=== PATIENT | male | born 1945 | race Caucasian/White ===

== ENCOUNTER 2019-05-15 08:11 | Day surgery (SDC) | payer MEDICARE, OTHER ==
[~2019-05-15] VITALS: Ht 182.9 cm; Wt 91.5 kg
[~2019-05-15 08:11] MED LIST: ALLEGRA ALLERG180 MG PO; COENZYME Q10100 MG PO; Daily Multiple1 EACH PO; ELIQUIS5 MG PO; Oysco-500500 MG PO; SIMV10 PO
--- NOTE | 2019-05-15 09:07 | NUR ---
05/15/19 0907 Dayana Thacker 1 ATTEMP HAND RIGHT VALVE IN WAY 2 ATTEMP GOOD UPPER ARM
== END 2019-05-15 10:46 | disposition home or self-care (01) ==
LOC: ORSCSDS 08:11
PROVIDERS: Internal Medicine Gastroenterology
PROC: 0DBH8ZX Excision of Cecum, Via Natural or Artificial Opening Endoscopic, Diagnostic (ICD-10-PCS; principal; 2019-05-15 09:45)
DX: Z12.11 Encounter for screening for malignant neoplasm of colon (principal); Z86.010 Personal history of colon polyps; Z80.0 Family history of malignant neoplasm of digestive organs; D12.0 Benign neoplasm of cecum; K57.30 Diverticulosis of large intestine without perforation or abscess without bleeding; K64.8 Other hemorrhoids; I48.91 Unspecified atrial fibrillation; I10 Essential (primary) hypertension; E03.9 Hypothyroidism, unspecified; Z87.891 Personal history of nicotine dependence; Z79.01 Long term (current) use of anticoagulants; Z79.899 Other long term (current) drug therapy
CPT/HCPCS: 88305; J2704; J7120

== ENCOUNTER 2021-08-06 09:44 | Inpatient (IN) | payer MEDICARE, OTHER ==
[~2021-08-06] VITALS: Ht 182.9 cm; Wt 91.7 kg
[~2021-08-06 09:44] MED LIST changes: +CALCIUM CARBONATE PO; -Oysco-500500 MG PO
[2021-08-06 10:57] LABS: BASOPHILS ABSOLUTE AUTO 0.02 K/mm3 (0.00-0.23); BASOPHILS PERCENT AUTO 0 % (0-2); EOSINOPHILS PERCENT AUTO 0 % (0-6); Hematocrit 48.1 % (37.0-53.0); Hemoglobin 16.6 g/dL (13.5-17.5); IMMATURE GRAN ABSOLUTE AUTO 0.04 K/mm3 (0.00-0.10); IMMATURE GRAN PERCENT AUTO 0 % (0-1); LYMPHOCYTES ABSOLUTE AUTO 0.68 K/mm3 (0.84-5.20); LYMPHOCYTES PERCENT AUTO 6 % (21-46); MONOCYTES ABSOLUTE AUTO 0.68 K/mm3 (0.16-1.47); MONOCYTES PERCENT AUTO 6 % (4-13); Mean Corpuscular HGB 32.2 pg (26.0-34.0); Mean Corpuscular HGB Conc 34.5 g/dL (31.5-36.5); Mean Corpuscular Volume 93 fL (80-100); Mean Platelet Volume 9.5 fL (9.1-12.4); NEUTROPHILS PERCENT AUTO 88 % (41-73); Platelet Count 272 K/mm3 (150-400); RDW Coefficient Variation 12.5 % (11.7-14.2); RDW Standard Deviation 43.6 fL (35.1-46.3); Red Blood Cell Count 5.16 M/mm3 (4.30-5.90); White Blood Cell Count 11.72 K/mm3 (4.00-11.30)
[2021-08-06 11:50] LABS: Alanine Aminotransfer (ALT/SGP 49 U/L (12-78); Albumin, Blood 3.6 g/dL (3.4-5.0); Albumin/Globulin Ratio 0.9 (0.8-1.8); Alk Phos 90 U/L (50-136); Anion Gap 8 mmol/L (6-16); Aspartate Aminotrans (AST/SGOT 160 U/L (12-37); Bilirubin, Total 2.2 mg/dL (0.1-1.0); Blood Urea Nitrogen 12 mg/dL (8-24); Bun/Creatinine Ratio 20.6 (12.0-20.0); CO2, Blood 23 mmol/L (21-32); Calcium, Blood 9.1 mg/dL (8.5-10.1); Chloride, Blood 104 mmol/L (98-108); Creatinine, Blood 0.58 mg/dL (0.60-1.20); Globulin, Blood 3.9 g/dL (2.2-4.0); Glomerular Filtration Rate >60 (60-); Glucose, Blood 191 mg/dL (70-99); Potassium, Blood 4.1 mmol/L (3.5-5.5); Sodium, Blood 135 mmol/L (136-145); Total Protein, Blood 7.5 g/dL (6.4-8.2)
[2021-08-06 13:20] LABS: Influenza A, PCR NEGATIVE (NEGATIVE); Influenza B, PCR NEGATIVE (NEGATIVE); Resp Syncytial Virus, PCR NEGATIVE (NEGATIVE); SARS-Cov-2 (COVID-19) PCR, MMC NEGATIVE (NEGATIVE)
[2021-08-06 14:14] LABS: Anti-Xa UFH, PHA Monitoring 0.12 IU/mL; International Normalized Ratio 1.06; Prothrombin Time Results 11.1 Sec (9.7-11.5)
[2021-08-06] MEDS ORDERED: Co Q-1010 MG PO (21:07)
[2021-08-06] MEDS ORDERED: MIRALAX17 GM PO (21:07)
[2021-08-06] MEDS ORDERED: OCUVITE BLUE L1 EACH PO (21:07)
[2021-08-06] MEDS ORDERED: ALLEGRA ALLERG180 MG PO (21:08)
[2021-08-06] MEDS ORDERED: Acetaminophen650 M1 PO (21:09)
[2021-08-06] MEDS ORDERED: Calcium Carbon500 MG PO (21:10)
--- NOTE | 2021-08-06 21:30 | NUR ---
PATIENT A/OX3. SEEMS TO BE FORGETFUL AT TIMES, PULLING AT GOWN AT TIMES. HIS STATES THAT HE HAS BEEN FORGETFUL FOR THE LAST FEW DAYS BUT THAT HE USUALLY IS NOT. DENIES PAIN. SPO2 WAS 84-86% ON ROOM AIR. PLACED ON 3L O2 VIA NASAL CANNULA AND SPO2 INCREASED >90%. DENIES FEELING SHORT OF BREATH. TELE SHOWS SINUS RHYTHM IN THE 80'S-90'S. ARMBOARD TO R WRIST. WHEN PATIENT ARRIVED AND I VIEWED R RADIAL ACCESS SITE WITH FRUIT WORKER RN, SMALL AMOUNT OF BLEEDING WAS NOTED AROUND SITE AND ON ARMBOARD. FRUIT WORKER RN CLEANED BLOOD AROUND SITE AND I PLACED 2 MLS ADDITIONAL AIR INTO TR BAND. PATIENT DENIES PAIN, NUMBNESS, AND TINGLING TO SITE. GOOD PLETH, STRONG PULSE, HAND IS WARM AND PINK. PATIENT VERBALIZED UNDERSTANDING OF R RADIAL ARTERY ACCESS PRECAUTIONS. ADMISSION COMPLETED WITH PATIENT, HIS , AND HIS SISTER. CALL LIGHT IN REACH. BED ALARM ON FOR SAFETY.
[2021-08-07 04:14] LABS: BASOPHILS ABSOLUTE AUTO 0.02 K/mm3 (0.00-0.23); BASOPHILS PERCENT AUTO 0 % (0-2); EOSINOPHILS PERCENT AUTO 0 % (0-6); Hematocrit 42.3 % (37.0-53.0); Hemoglobin 14.4 g/dL (13.5-17.5); IMMATURE GRAN ABSOLUTE AUTO 0.05 K/mm3 (0.00-0.10); IMMATURE GRAN PERCENT AUTO 0 % (0-1); LYMPHOCYTES ABSOLUTE AUTO 0.87 K/mm3 (0.84-5.20); LYMPHOCYTES PERCENT AUTO 8 % (21-46); MONOCYTES ABSOLUTE AUTO 1.29 K/mm3 (0.16-1.47); MONOCYTES PERCENT AUTO 11 % (4-13); Mean Corpuscular HGB 31.7 pg (26.0-34.0); Mean Corpuscular Volume 93 fL (80-100); Mean Platelet Volume 9.6 fL (9.1-12.4); NEUTROPHILS ABSOLUTE AUTO 9.15 K/mm3 (1.96-9.15); NEUTROPHILS PERCENT AUTO 81 % (41-73); Platelet Count 220 K/mm3 (150-400); RDW Standard Deviation 44.2 fL (35.1-46.3); Red Blood Cell Count 4.54 M/mm3 (4.30-5.90); White Blood Cell Count 11.38 K/mm3 (4.00-11.30)
[2021-08-07 05:10] LABS: Alanine Aminotransfer (ALT/SGP 75 U/L (12-78); Albumin, Blood 2.7 g/dL (3.4-5.0); Albumin/Globulin Ratio 0.9 (0.8-1.8); Alk Phos 69 U/L (50-136); Anion Gap 8 mmol/L (6-16); Aspartate Aminotrans (AST/SGOT 360 U/L (12-37); Bilirubin, Total 2.9 mg/dL (0.1-1.0); Blood Urea Nitrogen 14 mg/dL (8-24); Bun/Creatinine Ratio 23.4 (12.0-20.0); CO2, Blood 24 mmol/L (21-32); Calcium, Blood 8.3 mg/dL (8.5-10.1); Chloride, Blood 107 mmol/L (98-108); Globulin, Blood 2.9 g/dL (2.2-4.0); Glomerular Filtration Rate >60 (60-); Glucose, Blood 145 mg/dL (70-99); Sodium, Blood 139 mmol/L (136-145); Total Protein, Blood 5.6 g/dL (6.4-8.2)
--- NOTE | 2021-08-07 06:11 | NUR ---
SHIFT SUMMARY: PATIENT A/OX3, FORGETFUL AT TIMES. SET OFF BED ALARM TO GO TO BATHROOM. HAS DENIED PAIN. TELE HAS SHOWN SINUS RHYTHM. REQUIRES 2-3L O2 VIA NC TO KEEP SPO2 >90%. DOES NOT WEAR OXYGEN AT HOME. UP TO BATHROOM WITH 1 ASSIST. TR BAND DEFLATED AND IS OFF. R RADIAL SITE HAS CLEAR DRESSING. ARMBOARD TO R WRIST. REFUSED JAMARCUS HOSE. LIVES WITH HIS . PLAN IS FOR ECHO TODAY. CALL LIGHT IN REACH. BED ALARM ON. WILL CONTINUE TO MONITOR AND REPORT TO ONCOMING RN.
--- NOTE | 2021-08-07 07:23 | NUR ---
I DID ALLOW PATIENT TO DRINK WATER LAST NIGHT CARDIAC CATH WAS ALREADY PERFORMED.
--- NOTE | 2021-08-07 10:37 | NUR ---
UPDATE DR CASTRO GAVE TO APPROVAL FOR DISCHARGE TO THIS RN AND FEATHEREDGER AND REDUCER MACHINE. THIS RN CONTACTED DR SAUCEDO TO INFORM HER OF DR CASTRO INSTRUCTIONS. DR SAUCEDO WILL BEGAN FOR DISCHARGE AND STATED THAT THE ABDOMINAL ULTRASOUND CAN BE DONE IN OUTPATIENT.
[2021-08-07] MEDS ORDERED: ATOR40TA PO (12:59)
[2021-08-07] MEDS ORDERED: ASPI81CH PO (13:00)
[2021-08-07] MEDS ORDERED: CLOP75 PO (13:00)
[2021-08-07] MEDS ORDERED: LISI5 PO (13:01)
[2021-08-07] MEDS ORDERED: METO25ER PO (13:02)
--- NOTE | 2021-08-07 14:09 | NUR ---
DISCHARGE UPDATE PT DISCHARGE PACKET GONE OVER WITH PT, PT , AND PT SISTER AT 1330. PT LEFT UNIT AT 1403 VIA WHEELCHAIR. PT WAS LUPE TO TRANSFER SELF TO WHEELCHAIR AND FROM WHEELCHAIR TO VEHICLE. PT BELONGINGS AND DISCHARGE PACKET WITH PTWHEN DISCHARGED. PT ON RA WHEN DISCHARGED.
--- NOTE | 2021-08-07 18:21 | NUR ---
ECHOCARDIOGRAM COMPLETE
== END 2021-08-07 14:03 | disposition home or self-care (01) | DRG 247 ==
LOC: ER 09:44 → ERHOLD 15:13 → PCU 20:43
PROVIDERS: Emergency Medicine; Physician Assistant; ADMIT Family Medicine
PROC: 027034Z Dilation of Coronary Artery, One Artery with Drug-eluting Intraluminal Device, Percutaneous Approach (ICD-10-PCS; principal; 2021-08-06)
PROC: B2111ZZ Fluoroscopy of Multiple Coronary Arteries using Low Osmolar Contrast (ICD-10-PCS; 2021-08-06)
DX: I21.4 Non-ST elevation (NSTEMI) myocardial infarction (principal); E87.1 Hypo-osmolality and hyponatremia; J43.9 Emphysema, unspecified; E78.5 Hyperlipidemia, unspecified; R74.8 Abnormal levels of other serum enzymes; K21.9 Gastro-esophageal reflux disease without esophagitis; Z87.891 Personal history of nicotine dependence; Z79.899 Other long term (current) drug therapy; I25.10 Atherosclerotic heart disease of native coronary artery without angina pectoris; I48.0 Paroxysmal atrial fibrillation; Z98.890 Other specified postprocedural states
CPT/HCPCS: 0241U; 36415; 71046; 71260; 74177; 76937; 80053; 83605; 83690; 83880; 84484; 85025; 85347; 85520; 85610; 87040; 93005; 93010; 93454; 96365; 96366; 96376; 99152; 99153; 99285-25; A9270; C1725; C1769; C1874; C1887; C1894; C8923; C9600; J1644; J2250; J2405; J3010; J7030; J7050; Q9957; Q9967

== ENCOUNTER 2021-08-08 02:05 | Inpatient (IN) | payer MEDICARE, OTHER ==
[~2021-08-08] VITALS: Ht 185.4 cm; Wt 90.4 kg
[~2021-08-08 02:05] MED LIST changes: +ASPI81CH PO; +ATOR40TA PO; +Acetaminophen650 M1 PO; +CLOP75 PO; +Calcium Carbon500 MG PO; +Co Q-1010 MG PO; +LISI5 PO; +METO25ER PO; +MIRALAX17 GM PO; +OCUVITE BLUE L1 EACH PO
[2021-08-08 02:45] LABS: BASOPHILS ABSOLUTE AUTO 0.02 K/mm3 (0.00-0.23); BASOPHILS PERCENT AUTO 0 % (0-2); EOSINOPHILS ABSOLUTE AUTO 0.01 K/mm3 (0.00-0.68); EOSINOPHILS PERCENT AUTO 0 % (0-6); Hematocrit 40.2 % (37.0-53.0); Hemoglobin 13.6 g/dL (13.5-17.5); IMMATURE GRAN ABSOLUTE AUTO 0.04 K/mm3 (0.00-0.10); IMMATURE GRAN PERCENT AUTO 0 % (0-1); LYMPHOCYTES ABSOLUTE AUTO 0.44 K/mm3 (0.84-5.20); LYMPHOCYTES PERCENT AUTO 5 % (21-46); MONOCYTES ABSOLUTE AUTO 1.13 K/mm3 (0.16-1.47); MONOCYTES PERCENT AUTO 12 % (4-13); Mean Corpuscular HGB Conc 33.8 g/dL (31.5-36.5); Mean Corpuscular Volume 95 fL (80-100); Mean Platelet Volume 9.8 fL (9.1-12.4); NEUTROPHILS ABSOLUTE AUTO 7.64 K/mm3 (1.96-9.15); NEUTROPHILS PERCENT AUTO 82 % (41-73); Platelet Count 181 K/mm3 (150-400); RDW Coefficient Variation 12.8 % (11.7-14.2); RDW Standard Deviation 44.3 fL (35.1-46.3); Red Blood Cell Count 4.25 M/mm3 (4.30-5.90); White Blood Cell Count 9.28 K/mm3 (4.00-11.30)
[2021-08-08 03:02] LABS: International Normalized Ratio 1.09; Prothrombin Time Results 11.4 Sec (9.7-11.5)
[2021-08-08 03:32] LABS: Alanine Aminotransfer (ALT/SGP 89 U/L (12-78); Albumin, Blood 2.6 g/dL (3.4-5.0); Albumin/Globulin Ratio 0.7 (0.8-1.8); Alk Phos 79 U/L (50-136); Anion Gap 7 mmol/L (6-16); Aspartate Aminotrans (AST/SGOT 202 U/L (12-37); Bilirubin, Total 4.2 mg/dL (0.1-1.0); Blood Urea Nitrogen 19 mg/dL (8-24); Bun/Creatinine Ratio 25.8 (12.0-20.0); CO2, Blood 25 mmol/L (21-32); Calcium, Blood 8.3 mg/dL (8.5-10.1); Chloride, Blood 103 mmol/L (98-108); Creatinine, Blood 0.74 mg/dL (0.60-1.20); Globulin, Blood 3.6 g/dL (2.2-4.0); Glomerular Filtration Rate >60 (60-); Glucose, Blood 152 mg/dL (70-99); Sodium, Blood 135 mmol/L (136-145); Total Protein, Blood 6.2 g/dL (6.4-8.2)
[2021-08-08 04:08] LABS: Influenza A, PCR NEGATIVE (NEGATIVE); Influenza B, PCR NEGATIVE (NEGATIVE); Resp Syncytial Virus, PCR NEGATIVE (NEGATIVE); SARS-Cov-2 (COVID-19) PCR, MMC NEGATIVE (NEGATIVE)
--- NOTE | 2021-08-08 14:58 | NUR ---
ASSUMPTION OF CARE NOTE/ADMITTING NOTE TIME OF ARRIVAL TO PCU 1445, PT TRANSPORTED VIA HOSP BED FROM ED, SISTER AT BEDSIDE, VSS. SPO2 93% VIA 6L NC. PT DENIES CHEST PAIN/PRESSURE. IV IN LEFT FORARM FLUSHED WELL IV IN RIGHT AC.
--- NOTE | 2021-08-08 18:23 | NUR ---
SHIFT SUMMARY PT ALERT AND ORIENTED TO PERSON, PLACE, FAMILY. HE FOLLOWS DIRECTIONS AND ANSWERS QUESTIONS APPROPRIATELY. VITAL SIGNS STABLE, PT SPO2 IN 90'S VIA 6L NC, PT DOES NOT USE O2 AT HOME. PT DENIES PAIN/CHEST PAIN OR PRESSURE. IS AT BEDSIDE. PT REPORTED LACK OF APPETITE BUT DENIES NAUSEA. HE UTILIZED BEDSIDE URINAL, OUTPUT WAS ELVA IN COLOR. PT REPORTED ISSUES WITH INITIATING STREAM AND RETENTION AT HOME WHEN ATTEMPTING TO VOID BUT WAS ABLE TO VOID APPROX. 400 ML THIS AFTERNOON. BOTH LEFT AND RIGHT IV'S ARE SALINE LOCKED. TELE MONITORING IN PLACE. PT INSTRUCTED ON USE OF CALL LIGHT AND ORIENTED TO PCU UNIT. WILL CONTINUE TO MONITOR UNTIL REPORT GIVEN. CALL LIGHT IN REACH.
--- NOTE | 2021-08-09 00:23 | NUR ---
PT UPDATE PT C/O OF SOB. PTS LUNG SOUNDS WHEEZING IN UPPERS. OXYGEN DEMANDS INCREASED FROM 5L O2 TO 10L O2 TO KEEP SATS >90%. CALL PLACED TO MD BE. MD BE WITH ORDERS FOR 40MG LASIX IV. PTS BP STABLE. PT REPORTS A DECREASE IN SOB. SP02>90% ON 6L 02
[2021-08-09 03:57] LABS: BASOPHILS ABSOLUTE AUTO 0.02 K/mm3 (0.00-0.23); BASOPHILS PERCENT AUTO 0 % (0-2); EOSINOPHILS PERCENT AUTO 0 % (0-6); Hematocrit 39.4 % (37.0-53.0); Hemoglobin 13.3 g/dL (13.5-17.5); IMMATURE GRAN ABSOLUTE AUTO 0.05 K/mm3 (0.00-0.10); IMMATURE GRAN PERCENT AUTO 0 % (0-1); LYMPHOCYTES ABSOLUTE AUTO 0.66 K/mm3 (0.84-5.20); LYMPHOCYTES PERCENT AUTO 5 % (21-46); MONOCYTES PERCENT AUTO 12 % (4-13); Mean Corpuscular HGB 31.6 pg (26.0-34.0); Mean Corpuscular HGB Conc 33.8 g/dL (31.5-36.5); Mean Corpuscular Volume 94 fL (80-100); Mean Platelet Volume 9.8 fL (9.1-12.4); NEUTROPHILS ABSOLUTE AUTO 9.99 K/mm3 (1.96-9.15); NEUTROPHILS PERCENT AUTO 82 % (41-73); Platelet Count 187 K/mm3 (150-400); RDW Standard Deviation 44.4 fL (35.1-46.3); Red Blood Cell Count 4.21 M/mm3 (4.30-5.90); White Blood Cell Count 12.12 K/mm3 (4.00-11.30)
[2021-08-09 04:30] LABS: Alanine Aminotransfer (ALT/SGP 131 U/L (12-78); Albumin, Blood 2.4 g/dL (3.4-5.0); Albumin/Globulin Ratio 0.6 (0.8-1.8); Alk Phos 170 U/L (50-136); Anion Gap 8 mmol/L (6-16); Aspartate Aminotrans (AST/SGOT 138 U/L (12-37); Blood Urea Nitrogen 18 mg/dL (8-24); Bun/Creatinine Ratio 27.8 (12.0-20.0); CO2, Blood 26 mmol/L (21-32); Chloride, Blood 102 mmol/L (98-108); Creatinine, Blood 0.65 mg/dL (0.60-1.20); Globulin, Blood 3.7 g/dL (2.2-4.0); Glomerular Filtration Rate >60 (60-); Glucose, Blood 147 mg/dL (70-99); Potassium, Blood 3.4 mmol/L (3.5-5.5); Sodium, Blood 136 mmol/L (136-145); Total Protein, Blood 6.1 g/dL (6.4-8.2)
--- NOTE | 2021-08-09 07:29 | NUR ---
SHIFT SUMMARY PT A&OX4. SP02>90% ON 6L NC. PT DID HAVE ONE EPISODE OF SOB THIS SHIFT, SEE PREVIOUS NOTE. TELEMETRY READS NSR, HR 90'S. VSS. PT HAS USED URINAL MULTIPLE TIMES AT BEDSIDE, GENERALIZED WEAKENESS NOTED. PT'S CALLED SEVERAL TIMES T/O NIGHT FOR UPDATE ON , SPOKE WITH . PT DENIES PAIN. SLEPT OFF AND ON T/O NIGHT. CALL LIGHT IN REACH.
--- NOTE | 2021-08-09 18:31 | NUR ---
SHIFT SUMMARY: PT A&O, VERY INVOLVED IN DECISIONS RE: CARE WHILE IN HOSPITAL, ASKING QUESTIONS AND INVOLVING HIS IN DECISION MAKING. GENERAL WEAKNESS CONTINUES, BUT PT ABLE TO AMBULATE W/SBA. PT O2 FLOW TITRATED TO 2L/MIN, MAINTAINING O2 SATS >92%, SOB W/EXERTION. SPUTUM SAMPLE HAS BEEN ORDERED, PT DOES HAVE A COUGH BUT DENIES PRODUCTION OF SPUTUM. SR ON MONITOR. BED ALARM IN PLACE D/T IMPULSIVENESS R/T DIURESIS. PT MEDICATED W/PRN MEDS FOR ELEVATED TEMP, IMPROVEMENT NOTED. WILL CONTINUE TO MONITOR AND TREAT ACCORDINGLY UNTIL CHANGE OF SHIFT.
[2021-08-10 04:13] LABS: BASOPHILS ABSOLUTE AUTO 0.02 K/mm3 (0.00-0.23); BASOPHILS PERCENT AUTO 0 % (0-2); EOSINOPHILS ABSOLUTE AUTO 0.09 K/mm3 (0.00-0.68); EOSINOPHILS PERCENT AUTO 1 % (0-6); Hematocrit 37.9 % (37.0-53.0); Hemoglobin 13.2 g/dL (13.5-17.5); IMMATURE GRAN ABSOLUTE AUTO 0.02 K/mm3 (0.00-0.10); IMMATURE GRAN PERCENT AUTO 0 % (0-1); LYMPHOCYTES ABSOLUTE AUTO 0.74 K/mm3 (0.84-5.20); LYMPHOCYTES PERCENT AUTO 11 % (21-46); MONOCYTES ABSOLUTE AUTO 0.89 K/mm3 (0.16-1.47); MONOCYTES PERCENT AUTO 13 % (4-13); Mean Corpuscular HGB 32.4 pg (26.0-34.0); Mean Corpuscular HGB Conc 34.8 g/dL (31.5-36.5); Mean Corpuscular Volume 93 fL (80-100); Mean Platelet Volume 9.9 fL (9.1-12.4); NEUTROPHILS ABSOLUTE AUTO 5.15 K/mm3 (1.96-9.15); NEUTROPHILS PERCENT AUTO 75 % (41-73); Platelet Count 203 K/mm3 (150-400); RDW Coefficient Variation 12.9 % (11.7-14.2); RDW Standard Deviation 44.7 fL (35.1-46.3); Red Blood Cell Count 4.07 M/mm3 (4.30-5.90); White Blood Cell Count 6.91 K/mm3 (4.00-11.30)
[2021-08-10 04:40] LABS: Alanine Aminotransfer (ALT/SGP 153 U/L (12-78); Albumin, Blood 2.1 g/dL (3.4-5.0); Albumin/Globulin Ratio 0.7 (0.8-1.8); Alk Phos 238 U/L (50-136); Anion Gap 9 mmol/L (6-16); Aspartate Aminotrans (AST/SGOT 156 U/L (12-37); Bilirubin, Total 3.4 mg/dL (0.1-1.0); Blood Urea Nitrogen 19 mg/dL (8-24); CO2, Blood 25 mmol/L (21-32); Chloride, Blood 103 mmol/L (98-108); Creatinine, Blood 0.58 mg/dL (0.60-1.20); Globulin, Blood 3.2 g/dL (2.2-4.0); Glomerular Filtration Rate >60 (60-); Glucose, Blood 137 mg/dL (70-99); Potassium, Blood 3.4 mmol/L (3.5-5.5); Sodium, Blood 137 mmol/L (136-145); Total Protein, Blood 5.3 g/dL (6.4-8.2)
--- NOTE | 2021-08-10 05:21 | NUR ---
SHIFT SUMMARY ASSUMED CARE OF PT AT 1900. PT IS A/OX4. PT WAS SINUS RYTHMN AT THE START OF SHIFT. AT AROUND 2300 PT HR ELEVATED TO 160 BUT WHEN BACK DOWN TO 80-90. THEN AT AROUN 0100 PT RATE REMAINED IN THE 160'S. HOSPITALIST NOTIFIED AND ORDERED TWO DOSES OF 5MG LOPRESSOR 30 MIN APART IF RATE DID NOT COME DOWN. PT RECEIVED BOTH WITH LITTLE EFFECT TO HR. SECOND CALL WAS MADE AT AROUND [address] ORDERED A 10MG PUSH OF CARDIZEM AND TO START A DRIP IF PT DOES NOT RESPOND. PT RATE DROPPED TO 90'S ON INITIAL PUSH BUT WITHIN 3 MIN PT RATE RETURNED TO 160'S. PT IS CURRENTLY TITIRATED TO 10MG/HR BUT RATE IS STILL 160S. PT ALSO HAD A FEVER OF 101.1 AT MIDNIGHT VITALS. PT REQUESTED TO ONLY HAVE 1 TYLENOL INSTEAD OF TWO BECAUSE HE WAS SCARED OF THE EFFECTS. PT EDUCATED ABOUT USE. PT HAD TO RECEIVED SECOND DOSE 1 HOUR LATER WITH TEMP OF 100.4. PT BODY CONTINUES TO BE HOT TO TOUCH BUT ORAL TEMP WAS 98.1 UPON REASSESSMENT. CALL LIGHT IN REACH, BED IN LOWEST POSITION.
--- NOTE | 2021-08-10 06:00 | NUR ---
UPDATE AT 0550 PT CONVERTED BACK TO SINUS AT 70-80. PT REMAINS ON THE CARDIZEM DRIP AT 5MG/HR. CALL LIGHT IN REACH, BED IN LOWEST POSITION.
--- NOTE | 2021-08-10 18:50 | NUR ---
SHIFT SUMMARY PT A/OX4 AND COOPERATIVE OF CARE. VITAL SIGNS STABLE THROUGHOUT SHIFT WITH O2 SATS >91% ON 1L NC. PT CARDIZEM GTT STOPPED AND PT RECIEVING CARDIZEM PO PER EMAR. PT WAS UP IN ROOM WITH SBA TO USE TOILET, TOLERATED FAIR. PT DESATS INTO 80'S WITH EXERTION. NO REPORT OF CHEST PAIN/PRESSURE THROUGHOUT SHIFT. PT WOULD REPORT SOB AFTER AMBULATING TO THE BATHROOM AND BACK. PT DID NOT EAT DIINER PROVIDED BY HOSPITAL BUT ATE A SOUP BROUGHT IN FROM HOME.
[2021-08-11 04:14] LABS: BASOPHILS ABSOLUTE AUTO 0.02 K/mm3 (0.00-0.23); BASOPHILS PERCENT AUTO 0 % (0-2); EOSINOPHILS ABSOLUTE AUTO 0.06 K/mm3 (0.00-0.68); EOSINOPHILS PERCENT AUTO 1 % (0-6); Hematocrit 36.5 % (37.0-53.0); Hemoglobin 12.4 g/dL (13.5-17.5); IMMATURE GRAN ABSOLUTE AUTO 0.05 K/mm3 (0.00-0.10); IMMATURE GRAN PERCENT AUTO 1 % (0-1); LYMPHOCYTES ABSOLUTE AUTO 0.77 K/mm3 (0.84-5.20); LYMPHOCYTES PERCENT AUTO 9 % (21-46); MONOCYTES ABSOLUTE AUTO 1.22 K/mm3 (0.16-1.47); MONOCYTES PERCENT AUTO 15 % (4-13); Mean Corpuscular HGB 32.1 pg (26.0-34.0); Mean Corpuscular Volume 95 fL (80-100); NEUTROPHILS ABSOLUTE AUTO 6.27 K/mm3 (1.96-9.15); NEUTROPHILS PERCENT AUTO 75 % (41-73); Platelet Count 207 K/mm3 (150-400); RDW Coefficient Variation 13.2 % (11.7-14.2); RDW Standard Deviation 45.4 fL (35.1-46.3); Red Blood Cell Count 3.86 M/mm3 (4.30-5.90); White Blood Cell Count 8.39 K/mm3 (4.00-11.30)
[2021-08-11 04:30] LABS: Alanine Aminotransfer (ALT/SGP 151 U/L (12-78); Albumin, Blood 1.8 g/dL (3.4-5.0); Albumin/Globulin Ratio 0.5 (0.8-1.8); Alk Phos 262 U/L (50-136); Anion Gap 7 mmol/L (6-16); Aspartate Aminotrans (AST/SGOT 132 U/L (12-37); Bilirubin, Total 1.9 mg/dL (0.1-1.0); Blood Urea Nitrogen 17 mg/dL (8-24); Bun/Creatinine Ratio 25.2 (12.0-20.0); CO2, Blood 27 mmol/L (21-32); Chloride, Blood 101 mmol/L (98-108); Creatinine, Blood 0.67 mg/dL (0.60-1.20); Globulin, Blood 3.7 g/dL (2.2-4.0); Glomerular Filtration Rate >60 (60-); Glucose, Blood 130 mg/dL (70-99); Potassium, Blood 3.7 mmol/L (3.5-5.5); Sodium, Blood 135 mmol/L (136-145); Total Protein, Blood 5.5 g/dL (6.4-8.2)
--- NOTE | 2021-08-11 05:13 | NUR ---
SHIFT SUMMARY ASSUMED CARE OF PT AT 1900. PT IS A/OX4. HEART SOUNDS REGULAR, PT REMAINED IN SINUS T/O THE NIGHT. PT SAD SOB WHEN WALKING TO THE BATHROOM AND NEEDED 2L NC TO RECOVER. PT IS A SBA TO BATHROOM. CALL LIHGT IN REACH, BED IN LOWEST POSTION.
--- NOTE | 2021-08-11 09:56 | NUR ---
PT CONVERTED TO AFIB RVR AT 150-170'S THIS MORNING AFTER GIVING PT'S MORNING MEDS, DR AZUL WAS IN THE ROOM AWARE. VITALS BP SYSTOLIC 117, SATS 88-90'S ON RA WAS ENCOURAGED TO KEEP HIS NC PT WAS DESATTING TO 85'S WHEN EATING PT INSISTED HE DOESNT NEED IT AND HE WAS NOT USING ANY O2 YESTERDAY ALL DAY IT BOTHERS HIM, EXPLAINED TO PT CURRENT O2 STATUS NEEDS MORE ENCOURAGEMENT AND EDUCATION. TEMP WAS 98-99.2 DENIES ANY PAIN. PT WAS GIVEN PO MEDS INCLUDING METOPROLOL AND CARDIZEM WAS ALSO GIVEN ONE TIME BOLUS OF 20MG IV CARDIZEM AND PT CONVERTED BACK TO NSR 90'S AFTER 20 MINS. PT WAS A LITTLE IMPULSIVE OF WANTING TO USE THE BATHROOM PT WAS TACHYING UP PT WAS ALREADY ASSISTED TO THE BATHROOM BY THE ORGAN PIPE VOICER, AGAIN PT WAS EDUCATED ABOUT SAFETY AND ILLNESS. PT NOW BACK IN BED RESTING, ON 3L OF O2 VIA NASAL CANNULA SATTING 92-94%. BED ALARM ON FOR SAFETY. WILL CONTINUE TO MONITOR PT
--- NOTE | 2021-08-11 18:44 | NUR ---
PT SUMMARY: (SEE PREVIOUS NOTES) PT CONVERTED BACK TO AFIB RVR AGAIN AT AROUND 1600 PT DENIES ANY SYMPTOMS. PT DID WORK WITH PT WAS AMBULATING IN THE ROOM VIA WALKER ON ROOMAIR, THERAPIST STATED HE'S SATTING ABOVE 90%, THE PT WENT BACK TO BED PT WAS A LITTLE SOB SATS 87-88 O2 2L VIA NC APPLIED WENT BACK UP TO 92-94%. BP SYSTOLIC 90-110'S, HRR AFIB 150-160'S PT WAS GIVEN ANOTHER 20MG BOLUS OF CARDIZEM PUSH AND PT CONVERTED BACK TO SINUS AT 80'S AFTER 20 MINS. AT BEDSIDE. MENTIONED ABOUT FLECAINIDE THAT THE PT TAKES BEFORE FOR AFIB AND WAS DC'D LONG TIME AGO PT DIDNT HAVE ANY RECURRENCE OF THE ARRHYTHMIA. DR AZUL CALLED AND MADE AWARE, WILL POSSIBLY CONSULT [employer] IN AM IF PT KEEPS GETTING IN AND OUT OF AFIB. OTHERWISE PT WAS ALERT AND COHERENT, COMPLIANT WITH CARES, ABLE TO MAKE NEEDS KNOWN. CALLS APPROPRIATELY WILL RESPORT TO ONCOMING SHIFT
[2021-08-12 04:14] LABS: BASOPHILS ABSOLUTE AUTO 0.03 K/mm3 (0.00-0.23); BASOPHILS PERCENT AUTO 0 % (0-2); EOSINOPHILS ABSOLUTE AUTO 0.09 K/mm3 (0.00-0.68); EOSINOPHILS PERCENT AUTO 1 % (0-6); Hematocrit 40.4 % (37.0-53.0); Hemoglobin 13.4 g/dL (13.5-17.5); IMMATURE GRAN ABSOLUTE AUTO 0.07 K/mm3 (0.00-0.10); IMMATURE GRAN PERCENT AUTO 1 % (0-1); LYMPHOCYTES ABSOLUTE AUTO 0.68 K/mm3 (0.84-5.20); LYMPHOCYTES PERCENT AUTO 7 % (21-46); MONOCYTES ABSOLUTE AUTO 1.15 K/mm3 (0.16-1.47); MONOCYTES PERCENT AUTO 12 % (4-13); Mean Corpuscular HGB 31.8 pg (26.0-34.0); Mean Corpuscular HGB Conc 33.2 g/dL (31.5-36.5); Mean Corpuscular Volume 96 fL (80-100); Mean Platelet Volume 10.1 fL (9.1-12.4); NEUTROPHILS ABSOLUTE AUTO 8.01 K/mm3 (1.96-9.15); NEUTROPHILS PERCENT AUTO 80 % (41-73); Platelet Count 227 K/mm3 (150-400); RDW Coefficient Variation 13.1 % (11.7-14.2); RDW Standard Deviation 46.5 fL (35.1-46.3); Red Blood Cell Count 4.21 M/mm3 (4.30-5.90); White Blood Cell Count 10.03 K/mm3 (4.00-11.30)
[2021-08-12 04:50] LABS: Alanine Aminotransfer (ALT/SGP 146 U/L (12-78); Albumin, Blood 1.9 g/dL (3.4-5.0); Albumin/Globulin Ratio 0.6 (0.8-1.8); Alk Phos 300 U/L (50-136); Anion Gap 10 mmol/L (6-16); Aspartate Aminotrans (AST/SGOT 103 U/L (12-37); Bilirubin, Total 2.1 mg/dL (0.1-1.0); Blood Urea Nitrogen 16 mg/dL (8-24); Bun/Creatinine Ratio 28.5 (12.0-20.0); CO2, Blood 26 mmol/L (21-32); Calcium, Blood 7.8 mg/dL (8.5-10.1); Chloride, Blood 104 mmol/L (98-108); Creatinine, Blood 0.56 mg/dL (0.60-1.20); Globulin, Blood 3.4 g/dL (2.2-4.0); Glomerular Filtration Rate >60 (60-); Glucose, Blood 126 mg/dL (70-99); Magnesium, Blood 2.2 mg/dL (1.6-2.4); Potassium, Blood 3.8 mmol/L (3.5-5.5); Sodium, Blood 140 mmol/L (136-145); Total Protein, Blood 5.3 g/dL (6.4-8.2)
--- NOTE | 2021-08-12 06:56 | NUR ---
SHIFT SUMMARY NO ACUTE CHANGES HIS SHIFT. AXO. CONVERTING BACK AND FORTH FROM SINUS RHYTHM TO AFIB, WITH A FEW INSTANCES OF TACHING UP TO 130'S. THESE INSTNACES RESOLVED WITHOUT INTERVENTION. REMAINS ON 2LNC. PT ANXIOUS TO GO HOME. UPDATED AT BEGINNING OF SHIFT AND END OF SHIFT. OTHERWISE, PT RESTING T/O SHIFT. IS CURRENTLY SITTING UP IN A CHAIR. CALL LIGHT WITHIN REACH.
--- NOTE | 2021-08-12 08:55 | NUR ---
CARE ASSUMPTION PATIENT IS A/OX4. VSS. SPO2 >90% ON RA. PATIENT REPORTS NO CHEST PAIN, PAIN, OR SHORTNESS OF BREATH. PATIENT AMBULATES A STAND BY ASSIST WITH THE WALKER. PATIENT IS SITTING IN THE BEDSIDE CHAIR WITH THE TAB ALARM IN PLACE. CALL LIGHT WITHIN REACH. WILL CONTINUE TO MONITOR AND PROVIDE CARE.
--- NOTE | 2021-08-12 14:12 | NUR ---
UPDATE ON WHO PATIENT WANT TO SEE FOR FINISHER WALLBOARD AND PLASTERBOARD PATIENT IN WITH PATIENT REVIEWING NOTES FROM MD GUTIERREZ. PATIENT STATED THAT THEY NO LONGER WANT TO SEE THE FINISHER WALLBOARD AND PLASTERBOARD IN [place], THAT HIS SEES, BECAUSE THEY DO NOT WANT TO DRIVE UP TO [place]. THEY WOULD LIKE TO SEE A LOCAL FINISHER WALLBOARD AND PLASTERBOARD.
--- NOTE | 2021-08-12 17:30 | NUR ---
SHIFT SUMMARY PATIENT HAS HAD NO ACUTE CHANGES THIS SHIFT. VSS. PATIENT REPORTS NO CHEST PAIN, PAIN, OR SHORTNESS OF BREATH. PATIENT HAS HAD A FLAT AFFECT ON AND OFF THROUGHOUT THE DAY. PATIENT IS STTING IN BEDSIDE CHAIR AND IS EATING DINNER WITH AT BEDSIDE. PATIENT WORKED WITH PHYSICAL THERAPY TODAY AND AMBULATES A 1 PERSON ASSIST. PATIENT IS REQUESTING TO HAVE A WALKER WHEN HE GOES HOME INCASE HE NEEDS IT. PATIENT IS CURRENTLY NOT AMBULATING WITH A WALKER. CALL LIGHT WITHIN REACH AND TAB ALARM ON. WILL CONTINUE TO MONTIOR AND PROVIDE CARE UNTIL HAND OFF WITH NEXT SHIFT.
[2021-08-13 05:08] LABS: BASOPHILS ABSOLUTE AUTO 0.03 K/mm3 (0.00-0.23); BASOPHILS PERCENT AUTO 0 % (0-2); EOSINOPHILS ABSOLUTE AUTO 0.17 K/mm3 (0.00-0.68); EOSINOPHILS PERCENT AUTO 2 % (0-6); Hematocrit 36.4 % (37.0-53.0); Hemoglobin 12.5 g/dL (13.5-17.5); IMMATURE GRAN ABSOLUTE AUTO 0.07 K/mm3 (0.00-0.10); IMMATURE GRAN PERCENT AUTO 1 % (0-1); LYMPHOCYTES PERCENT AUTO 11 % (21-46); MONOCYTES ABSOLUTE AUTO 1.03 K/mm3 (0.16-1.47); MONOCYTES PERCENT AUTO 11 % (4-13); Mean Corpuscular HGB 31.9 pg (26.0-34.0); Mean Corpuscular HGB Conc 34.3 g/dL (31.5-36.5); Mean Corpuscular Volume 93 fL (80-100); NEUTROPHILS ABSOLUTE AUTO 7.13 K/mm3 (1.96-9.15); NEUTROPHILS PERCENT AUTO 76 % (41-73); Platelet Count 259 K/mm3 (150-400); RDW Coefficient Variation 12.9 % (11.7-14.2); Red Blood Cell Count 3.92 M/mm3 (4.30-5.90); White Blood Cell Count 9.43 K/mm3 (4.00-11.30)
--- NOTE | 2021-08-13 05:50 | NUR ---
SHIFT SUMMARY NO ACUTE CHANGES THIS SHIFT. AXO. PT IN SR/AFIB, HR CONTROLLED WITH NO EVENTS NOTED. ON RA T/O SHIFT. HAS VOIDED IN URINALS. HAD ONE INCONTINENT BM THIS SHIFT. PT STATES THIS IS DUE TO "INCORRECT MIRALAX DOSING". PT ANXIOUS ABOUT MEDICATION CHANGES, WILL DISCUSS WITH FACUNDO RN TO DISCUSS WITH DR TO ADDRESS THESE QUESTIONS. OTHERWISE, PT RESTING IN ROOM T/O SHIFT. CALL LIGHT IN REACH.
[2021-08-13 06:17] LABS: Alanine Aminotransfer (ALT/SGP 126 U/L (12-78); Albumin, Blood 1.9 g/dL (3.4-5.0); Albumin/Globulin Ratio 0.6 (0.8-1.8); Alk Phos 297 U/L (50-136); Anion Gap 9 mmol/L (6-16); Aspartate Aminotrans (AST/SGOT 79 U/L (12-37); Bilirubin, Total 1.7 mg/dL (0.1-1.0); Blood Urea Nitrogen 17 mg/dL (8-24); Bun/Creatinine Ratio 28.8 (12.0-20.0); CO2, Blood 27 mmol/L (21-32); Calcium, Blood 7.9 mg/dL (8.5-10.1); Chloride, Blood 101 mmol/L (98-108); Creatinine, Blood 0.59 mg/dL (0.60-1.20); Globulin, Blood 3.3 g/dL (2.2-4.0); Glomerular Filtration Rate >60 (60-); Glucose, Blood 132 mg/dL (70-99); Potassium, Blood 3.7 mmol/L (3.5-5.5); Sodium, Blood 137 mmol/L (136-145); Total Protein, Blood 5.2 g/dL (6.4-8.2)
--- NOTE | 2021-08-13 06:27 | NUR ---
AFIB PT CONVERTED TO AFIB. HR 130'S. 0900 PO CARDIZEM GIVEN EARLY.
--- NOTE | 2021-08-13 07:32 | NUR ---
CARE ASSUMPTION PATIENT IS A/OX4. VSS. TELE AFIB 110-140S. PATIENT REPORTS NO HEADACHE, PAIN, CHEST PAIN/PRESSURE, SHORTNESS OF BREATH OR NUMBNESS/TINGLING. PATIENT SITTING IN BED WITH AT BEDSIDE SO SHE CAN BE HERE WHEN THE DOCTOR COMES BY THIS MORNING. CALL LIGHT WITHIN REACH AND BED IN LOWEST POSITION. WILL CONTINUE TO MONITOR AND PROVIDE CARE.
--- NOTE | 2021-08-13 09:01 | NUR ---
AFIB TO SR PATIENT WAS SUSTAINING AT AFIB IN THE 140 TO MAX OF 154. PER MD GUTIERREZ ORDER PATIENT RECEIVED 5MG IV LOPRESSOR AND AT 0856 PATIENT CONVERTED BACK TO SR AT 92. NOTIFIED MD GUTIERREZ OF CHANGE AND LAND SURVEYOR MANAGER GABE DOING AN EKG PER MD GUTIERREZ. WILL CONTINUE TO MONITOR AND PROVIDE CARE.
[2021-08-13] MEDS ORDERED: DIGOX125 MC1 PO (12:05)
[2021-08-13] MEDS ORDERED: DILT120 PO (12:06)
[2021-08-13] MEDS ORDERED: FURO40 PO (12:06)
[2021-08-13] MEDS ORDERED: POTCHL20ER PO (12:07)
[2021-08-13] MEDS ORDERED: AMOCLA875 PO (12:08)
--- NOTE | 2021-08-13 12:25 | NUR ---
DISCHARGE INSTRUCTIONS/EDUCATION THIS RN PROVIDED DISCHARGE EDUCATION AND INSTRUCTIONS TO BOTH THE PATIENT AND THE . PATIENT AND BOTH VERBALIZED UNDERSTANDING AND ABLE TO EXPLAIN WHY THE PATIENT IS TAKING EACH NEW MEDICATION. WILL CONTINUE TO MONITOR AND PROVIDE CARE UNTIL RIDE ARRIVES.
--- NOTE | 2021-08-13 13:51 | NUR ---
PATIENT LEFT UNIT(DISCHARGED) PATIENT LEFT THE UNIT VIA WHEELCHAIR WITH HIS . THEY EXITED VIA [facility] TO THE PATIENT SISTER WHO IS GOING TO DRIVE THEM HOME.
--- NOTE | 2021-08-13 15:02 | NUR ---
Patient has already discharged home and patient's has requested a front-wheeled walker be delivered per PT recommendation. I did not see that recommendation in the PT assessments. I have ordered a front wheeled walker via [facility] to be delivered to the patient's home this afternoon.
== END 2021-08-13 13:50 | disposition home or self-care (01) | DRG 871 ==
LOC: ER 02:05 → ERHOLD 04:49 → PCU 14:38
PROVIDERS: Emergency Medicine; Family Medicine; ADMIT Internal Medicine
DX: A41.9 Sepsis, unspecified organism (principal); I21.4 Non-ST elevation (NSTEMI) myocardial infarction; J96.01 Acute respiratory failure with hypoxia; J18.9 Pneumonia, unspecified organism; I42.9 Cardiomyopathy, unspecified; I50.42 Chronic combined systolic (congestive) and diastolic (congestive) heart failure; I11.0 Hypertensive heart disease with heart failure; J43.9 Emphysema, unspecified; R74.01 Elevation of levels of liver transaminase levels; R94.31 Abnormal electrocardiogram [ECG] [EKG]; Z20.822 Contact with and (suspected) exposure to COVID-19; E78.5 Hyperlipidemia, unspecified; I48.0 Paroxysmal atrial fibrillation; I25.10 Atherosclerotic heart disease of native coronary artery without angina pectoris; I25.2 Old myocardial infarction; Z87.891 Personal history of nicotine dependence; Z88.8 Allergy status to other drugs, medicaments and biological substances; Z79.01 Long term (current) use of anticoagulants; Z79.02 Long term (current) use of antithrombotics/antiplatelets; Z79.899 Other long term (current) drug therapy
CPT/HCPCS: 0241U; 36415; 71045; 71046; 76705; 80053; 83605; 83735; 83880; 84145; 84484; 85025; 85610; 85730; 87040; 87449; 93005; 93010; 94760; 96365; 96375; 97110; 97112; 97116; 97162; 97166; 97530; 97535; 99285-25; A9270; J0282; J0295; J0456; J0696; J1940; J7030; J7050; J7060

== ENCOUNTER 2022-11-03 07:43 | Day surgery (SDC) | payer MEDICARE, OTHER ==
[~2022-11-03] VITALS: Ht 185.4 cm; Wt 84.1 kg
[~2022-11-03 07:43] MED LIST changes: +AMOCLA875 PO; +DIGOX125 MC1 PO; +DILT120 PO; +FURO40 PO; +LOSA25 PO; +POTCHL20ER PO; +ROSU5 PO
--- NOTE | 2022-11-03 08:52 | NUR ---
Ambulatory in Day Surgery History, Chart, Medications and Allergies reviewed before start of procedure. Pre-Op teaching done. Pt verbalizes understanding. Patient States Post-Procedure ride home has been arranged.
--- NOTE | 2022-11-03 12:44 | NUR ---
Dressing to procedure site clean, dry, intact with no visible drainage, swelling, erythema or bruising noted. Discharge instructions reviewed with patient. Patient verbalizes understanding. Copy given to patient to take home. Patient States Post-Procedure ride home has been arranged. Discharged via wheelchair to private car for ride home.
== END 2022-11-03 22:34 | disposition home or self-care (01) ==
LOC: ORSCMMR 07:43 → ORD 10:30 → ORSCMMR 11:00
PROVIDERS: Surgery
PROC: 0YU60JZ Supplement Left Inguinal Region with Synthetic Substitute, Open Approach (ICD-10-PCS; principal; 2022-11-03 09:00)
PROC: 3E0M05Z Introduction of Adhesion Barrier into Peritoneal Cavity, Open Approach (ICD-10-PCS; principal; 2022-11-03 09:00)
DX: K40.90 Unilateral inguinal hernia, without obstruction or gangrene, not specified as recurrent (principal); D17.6 Benign lipomatous neoplasm of spermatic cord; I48.91 Unspecified atrial fibrillation; Z79.01 Long term (current) use of anticoagulants; Z79.899 Other long term (current) drug therapy
CPT/HCPCS: A9270; C1781; J0690; J1100; J1885; J2405; J2704; J3010; J7120